=== PATIENT | male | born 1945 | race Caucasian/White ===

== ENCOUNTER 2020-09-04 05:10 | Observation (INO) | payer MEDICARE ==
[2020-09-04 05:20] VITALS: BMI 27.9
[2020-09-04 07:33] LABS: Anion Gap 15 mmol/L (10-20); BUN (Urea Nitrogen) 27 mg/dL (8.4-25.7); Calc. Creatinine Clearance 17 mL/min (70-130); Calcium 8.7 mg/dL (7.8-10.44); Carbon Dioxide 31 mmol/L (23-31); Chloride 95 mmol/L (98-107); Glucose 142 mg/dL (83-110); Sodium 137 mmol/L (136-145)
[2020-09-04 08:24] LABS: Troponin I 0.482 ng/mL (< 0.028)
[2020-09-04 08:44] LABS: #Basophils 0.1 10x3/uL (0.0-0.2); #Eosinphils 0.3 10x3/uL (0.0-0.5); #Monocytes 0.9 10x3/uL (0.0-1.1); #Neutrophils 3.8 10x3/uL (1.5-8.4); %Basophils 0.7 % (0.0-2.0); %Eosinophils 4.2 % (0.0-6.0); %Lymphocytes 24.9 % (18.0-47.0); %Monocytes 13.4 % (0.0-10.0); %Neutrophils 56.7 % (40.0-75.0); Hemoglobin 10.6 g/dL (13.5-17.5); Mean Corpuscular HGB CONC 31.3 g/dL (32.0-36.0); Mean Corpuscular Hemoglobin 31.5 pg (27.0-33.0); Mean Corpuscular Volume 100.6 fl (81.2-95.1); Mean Platelet Volume 11.5 fl (7.4-10.4); Platelet Count 117 10x3/uL (150-450); RBC Distribution Width 16.2 % (11.5-14.5); Red Blood Cell (RBC) Count 3.37 10x6/uL (4.32-5.72); White Blood Cell (WBC) Count 6.7 10x3/uL (3.5-10.5)
[2020-09-04] MEDS ORDERED: Heparin 10,000 UNITS/ 10 ML VIAL SLOW IVP PRN (10:48)
[2020-09-04] MEDS ORDERED: Acetaminophen 325 MG TAB PO PRN (12:11)
[2020-09-04] MEDS ORDERED: HYDROcodone/Acetaminophen 5/325 mg Tablet PO PRN (12:12)
[2020-09-04 13:08] LABS: Platelet Morphology Comment Appears Decreased; RBC Morphology Normal
[2020-09-04 13:50] LABS: Troponin I 0.448 ng/mL (< 0.028)
[2020-09-04 14:12] LABS: Hep B Surf Ag Non-Reactive S/CO (NonReactive)
[2020-09-04 14:17] LABS: HBSAg Index 0.53 S/CO (0-0.99)
[2020-09-04 16:00] LABS: Troponin I 0.404 ng/mL (< 0.028)
[2020-09-04 16:32] LABS: SARS-CoV-2 PCR by NAA Not Detected (NotDetected)
[2020-09-04] MEDS ORDERED: Aspirin 325 mg Enteric Coated Tablet PO SCH (17:45)
[2020-09-04] MEDS ORDERED: Dextrose 50% Abboject 50 ML SYRINGE SLOW IVP PRN (17:49)
[2020-09-04] MEDS ORDERED: Dextrose 5% in Water 1,000 ML IV PRN (17:49)
[2020-09-04] MEDS ORDERED: HumaLOG 300 UNITS/3 ML VIAL SC PRN (17:49)
[2020-09-04] MEDS ORDERED: Carvedilol 25 MG TAB PO SCH (18:00)
[2020-09-04 20:05] VITALS: BP 124/73; TEMP 98.2
[2020-09-05 00:03] LABS: Hep B Surf AB Indeterminate (NonReactive)
[2020-09-05 00:04] LABS: HBSAB Concentration 11.32 mIU/mL
[2020-09-05] MEDS ORDERED: Carvedilol 25 MG TAB PO SCH (08:00)
[2020-09-05] MEDS ORDERED: Aspirin 325 mg Enteric Coated Tablet PO SCH (09:00)
== END 2020-09-04 20:00 | disposition short-term general hospital (02) ==
LOC: CSHTELE 05:10
PROVIDERS: ADMIT Family Medicine; ATTEND Family Medicine
DX: I13.0 Hypertensive heart and chronic kidney disease with heart failure and stage 1 through stage 4 chronic kidney disease, or unspecified chronic kidney disease (principal); I50.23 Acute on chronic systolic (congestive) heart failure; I21.4 Non-ST elevation (NSTEMI) myocardial infarction; E11.22 Type 2 diabetes mellitus with diabetic chronic kidney disease; N18.6 End stage renal disease; I25.10 Atherosclerotic heart disease of native coronary artery without angina pectoris; E78.5 Hyperlipidemia, unspecified; J81.0 Acute pulmonary edema; E87.0 Hyperosmolality and hypernatremia; Z79.899 Other long term (current) drug therapy; Z79.4 Long term (current) use of insulin; Z79.82 Long term (current) use of aspirin; Z95.810 Presence of automatic (implantable) cardiac defibrillator; Z95.1 Presence of aortocoronary bypass graft; Z20.822 Contact with and (suspected) exposure to COVID-19; R11.2 Nausea with vomiting, unspecified
CPT/HCPCS: 71045; 80048; 82962; 83735; 84484; 85025; 86706; 87340; 93005; G0378; U0003; U0005; 36415; 36416; 87635; 90935; 93010; G0257; J1644